=== PATIENT | male | born 1990 ===

== ENCOUNTER 2021-04-27 11:36 | Emergency (ER) | payer OTHER ==
[~2021-04-27] VITALS: Ht 172.7 cm; Wt 87.1 kg
[2021-04-27 12:33] VITALS: BP 187/105
== END 2021-04-27 14:21 | disposition home or self-care (01) ==
LOC: ER 11:36
DX: S61.412A Laceration without foreign body of left hand, initial encounter (principal); W54.0XXA Bitten by dog, initial encounter; Y93.89 Activity, other specified; Y92.89 Other specified places as the place of occurrence of the external cause; Y99.8 Other external cause status
CPT/HCPCS: 12001